=== PATIENT | male | born 1955 | race Caucasian/White ===

== ENCOUNTER → 2017-04-02 | Outpatient (CLI) | payer BC, OTHER ==
[~2017-04-02] VITALS: Ht 182.1 cm; Wt 118.8 kg
[~2017-04-02] MED LIST: ASPIRIN 81M81 MG/TA2 PO; GLUCOSAMINE & C1 TAB PO; MULTIPLE VITAMI1 CAP PO; NIASPAN1000 MG PO; OMEGA-3 1000 MG1 CAP PO; THE MEDICINE S200 M2 PO; ZOCOR 20MG20 MG PO
[2017-04-02 09:09] VITALS: BP 140/90; PULSE 77
[2017-04-02 10:00] VITALS: BP 123/77; PULSE 62
[2017-04-02 10:01] VITALS: BP 142/86; PULSE 103
[2017-04-02 10:02] VITALS: BP 119/80; PULSE 87
[2017-04-02 10:03] VITALS: BP 135/79; PULSE 81
== END ==
LOC: COL.CARD 08:49
DX: R07.9 Chest pain, unspecified (principal)
CPT/HCPCS: A9502; J2785